=== PATIENT | male | born 1995 | race Caucasian/White ===

== ENCOUNTER 2017-02-06 18:10 | Emergency (ER) | payer OTHER ==
[~2017-02-06] VITALS: Ht 177.8 cm; Wt 81.8 kg
[2017-02-06] MEDS ORDERED: PENICILLIN V POTASSIUM 500 MG TABLET PO ONE (19:30)
[2017-02-06] MEDS ORDERED: IBUPROFEN 800 MG TABLET PO ONE (19:30)
[2017-02-06 19:41] VITALS: BP 138/68
== END 2017-02-06 19:56 | disposition home or self-care (01) ==
LOC: EMS 18:12
DX: K04.7 Periapical abscess without sinus (principal); K02.9 Dental caries, unspecified
CPT/HCPCS: 99283

== ENCOUNTER 2017-02-08 07:12 | Emergency (ER) | payer OTHER ==
[~2017-02-08] VITALS: Ht 177.8 cm; Wt 81.5 kg
[2017-02-08] MEDS ORDERED: DEXAMETHASONE SOD PHOS 4 MG/ML 5 ML VIAL IM ONE (08:30)
[2017-02-08] MEDS ORDERED: PENICILLIN G BENZATHINE LA 1,200,000 UNITS/2 ML SYRINGE IM ONE (09:15)
[2017-02-08] MEDS ORDERED: HYDROCODONE/ACETAMINOPHEN 5-325 MG TABLET PO ONE (09:45)
[2017-02-08 09:51] VITALS: BP 126/86
== END 2017-02-08 09:52 | disposition home or self-care (01) ==
LOC: EMS 07:12
DX: J02.9 Acute pharyngitis, unspecified (principal)
CPT/HCPCS: 87430; 96372; 99284; J0561; J1100